=== PATIENT | male | born 1955 | race Caucasian/White ===

== ENCOUNTER 2019-08-31 06:02 | Observation (INO) ==
--- NOTE | 2019-08-01 14:35 | PAT Medication Instructions ---
Medication Instructions Date of Service August 01, 2019 Home Medications hydralazine 25 mg tablet 25 mg PO TID hydrocortisone 2.5 % topical cream 1 appln TOP TID PRN diltiazem HCl 180 mg capsule,extended release 24 hr 180 mg PO BID hydrochlorothiazide 25 mg PO QAM levothyroxine 50 mcg PO QAM lovastatin 10 mg PO Q2D olmesartan 40 mg PO QAM potassium chloride 10 meq PO BID Continue as directed lovastatin 10 mg PO Q2D STOP taking 24 hours before surgery hydrocortisone 2.5 % topical cream 1 appln TOP TID PRN DO NOT take the morning of surgery hydrochlorothiazide 25 mg PO QAM olmesartan 40 mg PO QAM potassium chloride 10 meq PO BID Take morning of surgery With a small sip of water, OTHERWISE NOTHING TO EAT OR DRINK AFTER MIDNIGHT: hydralazine 25 mg tablet 25 mg PO TID diltiazem HCl 180 mg capsule,extended release 24 hr 180 mg PO BID levothyroxine 50 mcg PO QAM Take evening before surgery hydralazine 25 mg tablet 25 mg PO TID diltiazem HCl 180 mg capsule,extended release 24 hr 180 mg PO BID potassium chloride 10 meq PO BID Other Notes If you have any questions please call us at [phone] or [phone] or [phone] or [phone]
--- NOTE | 2019-08-02 12:10 | Anesthesiology Consultation ---
Date of Service August 02, 2019 Assessment & Plan (1) Encounter for pre-operative examination: - Awaiting preop cardiology evaluation scheduled 08/02 (Nedra Olivarez, PAC). - ASA instructions: per surgeon/prescriber Chart Review Chart Review: Patient seen in Pre Admission Testing Teaching & Discussion Pre-Anesthesia Teaching/Discussion Notes: Instructed NPO after midnight before surgery,except medications with 15 cc of water. Medication instructions provided according to the PAT guidelines. History Surgery Operation Date: 08/31/19 07:30 Proposed Procedures p Robotic Assisted Laparoscopic Prostatectomy, Possible Open, Possible Pelvic Lymph Node Dissection, Possible Suprapubic Tube Placement - Eben Colón MD Height/Weight Height: 5 ft 9 in Weight: 109.3 kg Allergies Allergy/AdvReac Type Severity Reaction Status Date / Time Penicillins AdvReac Severe syncopal Verified 08/01/19 14:34 episode/"went into shock" doxazosin AdvReac Unknown Unknown Verified 07/26/19 08:08 enalapril AdvReac Unknown cough Verified 08/01/19 14:34 Medications Home Medications Medication Instructions Recorded Confirmed Last Taken hydralazine 25 mg tablet 25 mg PO TID 01/18/19 08/02/19 Unknown hydrocortisone 2.5 % topical cream 1 appln TOP TID PRN 01/18/19 08/02/19 Unknown diltiazem HCl 180 mg 180 mg PO BID #180 cap 06/13/19 08/02/19 Unknown capsule,extended release 24 hr hydrochlorothiazide 25 mg PO QAM 07/26/19 08/02/19 Unknown levothyroxine 50 mcg PO QAM 07/26/19 08/02/19 Unknown lovastatin 10 mg PO Q2D 07/26/19 08/02/19 Unknown olmesartan 40 mg PO QAM 07/26/19 08/02/19 Unknown potassium chloride 10 meq PO BID 07/26/19 08/02/19 Unknown aspirin [Aspirin Low Dose] 81 mg PO DAILY 08/02/19 08/02/19 Unknown Exercise / Class Metabolic Activity III < 4 Walking/Shop/Light housework Past Family History Family History Grandmother Pancreatic cancer Diabetes Hypertension Grandfather Prostate cancer Bladder cancer Heart disease Father Diabetes Heart disease Mother Hypertension Brother Family history of diabetes mellitus Uncle Family history of diabetes mellitus Past Anesthesia History No Hx of Anesthesia Complications (except PONV (no issues when pretreatment used)) and No Family Hx of Anesthesia Complications History of PONV History of PONV (no issues subsequently when pretreatment used) and Hx of Motion Sickness Social History Smoking Status: Never smoker Do You Dip or Chew Tobacco: No Hx Alcohol Use: No Hx Substance Use: No Review of Systems Patient denies chest pain, shortness of breath, cough, wheezing, palpitations. Physical Exam Vital Signs VITALS BP 144/90 P 60 TEMP 98.1 SP02 99%RA RESP 18 PHYSICAL Full neck and c-spine range of motion. Full TMJ range of motion. TMD 4 finger breaths Mallampati Score 2 Dentition: intact Lungs: clear throughout to auscultation Cardiac: regular rate and rhythm, no murmurs noted Spine: normal Carotid arteries: negative bruit Extremities: no edema Trimmed roberto Testing Laboratory Results 07/26/19 WBC 7.06 H/H 16.6/46.9 PLATELETS 222 SODIUM 141 POTASSIUM 3.5 CHLORIDE 109 CO2 27 BUN 14 CREATININE 1.11 GLUCOSE 126 HGBA1C 5.9% PT 9.6 PTT 27.8 INR 0.9 Electrocardiogram Date: 08/02/19 SB at 59bpm. Chest X-Ray Date: 08/02/19 There is no pneumothorax or pleural effusion. Surgical clips project over the right hemithorax. Prosthetic cardiac valve is noted. There is mild cardiomegaly without evidence for pulmonary edema. There is no consolidation. Lung volumes are within normal limits. No acute cardiopulmonary findings. Echocardiogram Date: 07/18/18 LVEF 67%. Mild cLVH. Mild enlargement of atria and RV. Morphology and mobility of anterior and posterior leaflets are consistent with prior MV surgery and presence of an annuloplasty ring. Very mild mitral stenosis with an estimated mean diastolic gradient of 4-5mmhg and no significant mitral regurgitation. Mild TR. PASP 36mmhg. Compared to 07/01/17, no significant change. Moderate LAE/JV.
[~2019-08-31 06:02] MED LIST: ACETAMINOPHEN 1,000 MG/100 ML VIAL IV SCH; HEPARIN SOD 5,000 UNIT/0.5 ML VIAL SQ SCH; LR 15ML/HR IV SCH; VANCOMYCIN HCL 1,000 MG in SODIUM CHLORIDE 0.9% 250 ML IV SCH; VANCOMYCIN HCL 1,000 MG/270 ML BAG IV SCH
[2019-08-31] MEDS ORDERED: PROPOFOL IV EMULSION 10 MG/ML 20 ML VIAL IV ONE (06:48)
[2019-08-31] MEDS ORDERED: ONDANSETRON INJ 2 MG/ML 2 ML VIAL ONE ×2 (06:48→11:58)
[2019-08-31] MEDS ORDERED: DEXAMETHASONE SOD INJ 4 MG/ML VIAL ONE (06:48)
[2019-08-31] MEDS ORDERED: LIDOCAINE HCL 2% 2 ML VIAL/AMP(20MG/ML) INFIL ONE (06:48)
[2019-08-31] MEDS ORDERED: SUCCINYLCHOLINE CHLORIDE 20 MG/ML 10 ML VIAL ONE (06:48)
[2019-08-31] MEDS ORDERED: MIDAZOLAM HCL 1 MG/ML 2ML VIAL ONE (06:48)
[2019-08-31] MEDS ORDERED: CISATRACURIUM BESYLATE IV SOLN 2 MG/ML 10 ML VIAL IV ONE ×2 (06:48→10:50)
[2019-08-31] MEDS ORDERED: fentaNYL citrate 100 MCG/2 ML VIAL ONE ×2 (06:49→10:48)
[2019-08-31] MEDS ORDERED: SODIUM CHLORIDE 0.9% INJ 10 ML VIAL ONE (06:50)
--- NOTE | 2019-08-31 06:59 | History & Physical Bridge Note ---
Date of Service August 31, 2019 History & Physical Bridge Note I have examined the patient, reviewed the History & Physical and in the interval since the performance of the History & Physical I have noted the following changes of clinical significance: no changes noted
[2019-08-31] MEDS ORDERED: BUPIVACAINE 0.5 % 5 MG/1 ML MPF 30ML VIAL ONE (07:03)
[2019-08-31] MEDS ORDERED: PROMETHAZINE HCL 12.5 MG in SODIUM CHLORIDE 0.9% 50 ML IV PRN (08:09)
[2019-08-31] MEDS ORDERED: NALOXONE HCL 0.4 MG/1 ML VIAL/CARP IV PRN (08:09)
[2019-08-31] MEDS ORDERED: HYDROmorphone INJ 1 MG/ML SYRINGE IV PRN ×3 (08:09→12:29)
[2019-08-31] MEDS ORDERED: fentaNYL citrate 100 MCG/2 ML VIAL IV PRN (08:09)
[2019-08-31] MEDS ORDERED: ONDANSETRON INJ 2 MG/ML 2 ML VIAL IV PRN ×2 (08:09→12:29)
[2019-08-31] MEDS ORDERED: ATROPINE SULFATE 0.1 MG/ML 10ML SYR IV PRN (08:09)
[2019-08-31] MEDS ORDERED: FLUMAZENIL 0.1 MG/1 ML 10 ML VIAL IV PRN (08:09)
[2019-08-31] MEDS ORDERED: ePHEDrine sulfate 50 MG/ML AMP IV PRN (08:09)
[2019-08-31] MEDS ORDERED: LABETALOL HCL IV 5 MG/ML 20ML IV PRN (08:09)
[2019-08-31] MEDS ORDERED: HYDROmorphone INJ 2 MG/ML SYR/VIAL ONE (08:21)
[2019-08-31] MEDS ORDERED: SURGICEL ABSORB HEMOSTAT 2IN X 14IN TOP ONE (10:52)
[2019-08-31] MEDS ORDERED: GLYCOPYRROLATE 0.2 MG/ML VIAL ONE (11:58)
[2019-08-31] MEDS ORDERED: NEOSTIGMINE METHYLSULFATE 5 MG/5 ML SYR ONE (11:58)
[2019-08-31] MEDS ORDERED: OXYCODONE HCL IR 5 MG TAB (IMMEDIATE RELEASE) PO PRN ×2 (12:34)
[2019-08-31] MEDS ORDERED: LABETALOL HCL IV 5 MG/ML 20ML IV ONE (12:38)
--- NOTE | 2019-08-31 12:40 | Operative Report ---
PG Post Operative Report Pre & Post Diagnosis Operation Date: 08/31/19 07:30 Pre-Op Diagnosis: Prostate Cancer Post-Op Diagnosis: Prostate Cancer I identified the patient and participated in the time-out.: Yes Procedure Operation Date: 08/31/19 07:30 Actual Procedures p Robotic-Assisted Laparoscopic Radical Retropubic Prostatectomy, Bilateral Pelvic Lymph Node Dissection, Suprapubic Tube Placement - Eben Colón MD Surgeon Eben Colón MD Cutter And Edge Trimmer Fifi FLORES Estimated Blood Loss 50 Findings Consistent with Post-Op Diagnosis Specimens Prostate + SVs, periprostatic fat, L and R pelvic lymph nodes Description of Procedure See above I attest to the content of the Intraoperative Record and any orders documented therein. Any exceptions are noted below.
[2019-08-31 13:32] LABS: Basophils # (auto) 0.01 K/uL (0-0.2); Basophils % (auto) 0.1 %; Eosinophils # (auto) 0.01 K/uL (0-0.5); Eosinophils % (auto) 0.1 %; Hematocrit (blood only) 42.9 % (42-52); Hemoglobin 15.3 g/dL (14.0-18.0); Immature Granulocytes # (auto) 0.04 K/uL (0.00-0.02); Immature Granulocytes % (auto) 0.3 %; Lymphocytes # (auto) 1.11 K/uL (1.2-3.4); Lymphocytes % (auto) 7.6 %; Mean Corpuscular Hemoglobin 31.7 pg (25-34); Mean Corpuscular Volume 88.8 fL (80-100); Mean Platelet Volume 9.7 fL (7.4-10.4); Monocytes # (auto) 0.26 K/uL (0.11-0.59); Monocytes % (auto) 1.8 %; Neutrophils # (auto) 13.23 K/uL (1.4-6.5); Neutrophils % (auto) 90.1 %; Platelet Count 208 K/uL (130-400); RDW Coefficient of Variation 13.1 % (11.5-14.5); RDW Standard Deviation 42.5 fL (36.4-46.3); Red Blood Count 4.83 M/uL (4.7-6.1); White Blood Count 14.66 K/uL (4.8-10.8)
[2019-08-31 13:38] LABS: Mean Corpuscular Hgb Conc 35.7 g/dL (32-36)
[2019-08-31 13:48] LABS: BUN Creatinine Ratio 13.4 (10-20); Calcium 8.3 mg/dl (8.5-10.1); Creatinine Clr Calc Pharmacy 69.7 ml/min; Est GFR (African American) 67.1; Est GFR (Non-African American) 57.9; Potassium 3.8 mmol/L (3.5-5.1)
--- NOTE | 2019-08-31 13:57 | Operative Report ---
DATE OF OPERATION: 08/31/2019 PREOPERATIVE DIAGNOSIS: [place] 3+3 adenocarcinoma of the prostate with a preoperative PSA of 14.4. POSTOPERATIVE DIAGNOSIS: [place] 3+3 adenocarcinoma of the prostate with a preoperative PSA of 14.4. PROCEDURE: Robot-assisted laparoscopic radical retropubic prostatectomy with bilateral pelvic lymph node dissection and suprapubic tube placement. SURGEON: Eben Colón MD. STRAND FORMING MACHINE OPERATOR: MARK Euceda and KELLEY Sparrow. Assistants were present throughout the case for suction, retraction, port placement, needle and instrument passage, division of suture, retraction, clip placement and provision, patient positioning and general patient safety. ANESTHESIA: General anesthesia with endotracheal intubation plus local at port sites. ESTIMATED BLOOD LOSS: 50 mL. INTRAVENOUS FLUIDS: Approximately 2 liters of crystalloid. DRAINS LEFT IN PLACE: Include a 16-[place] silicone suprapubic tube with 10 mL of sterile water in the balloon, 18-[place] silicone urethral Bonilla catheter with 10 mL of sterile water in the balloon, #10 TANA drain in the left lower quadrant. SPECIMENS SENT TO PATHOLOGY: Periprosthetic fat, left pelvic lymph nodes with clip, right pelvic lymph nodes, prostate plus seminal vesicles. FINDINGS: Watertight anastomosis with no evidence of any rectal or intra-abdominal injuries, excellent nerve-sparing dissection on both sides. COMPLICATIONS: None. BRIEF HISTORY: Mr. Jacobs is a pleasant 64-year-old male with history of low-grade [place] 3+3 adenocarcinoma of the prostate on active surveillance. Unfortunately, his PSA has been rising and outpatient genetic scoring suggests a higher than average risk of aggressive disease. After discussion of risks and benefits of various forms of intervention, he has decided upon a robotic prostatectomy to manage his disease. Lymph node dissection originally is not planned due to a nomogram based risk of lymph node involvement of 1%. Please see H and P for further details. Intravenous Tylenol was provided for perioperative analgesia and subcutaneous heparin and SCDs used for DVT coverage. Intravenous vancomycin was provided due to a questionable history of PENICILLIN ALLERGY for antibiotic coverage. Informed consent was reviewed with the patient preoperatively today. DESCRIPTION OF PROCEDURE: The patient was properly identified and brought into the operative suite after identification of appropriate consent on the chart. General anesthesia with endotracheal intubation was initiated and the patient was prepped and draped in standard fashion for this procedure. time study statistician-out procedure was followed. All port sites were anesthetized with local prior to incision. A transverse supraumbilical incision was made after instillation of local anesthesia and this was used to introduce a 12 mm long laparoscopic port with a visual obturator under direct visualization. Abdomen was entered and inspected. It was noted to be free of any injuries or abnormalities in anatomy. Abdomen was insufflated to 15 mmHg and ports were placed for fourth arm robotic template including two 8 mm left-sided robotic ports, one 8 mm right-sided robotic port, and a 5 and 12 mm right-sided laparoscopic port. The patient was placed in Trendelenburg and robot was brought in and docked. A 0 degree lens was used to free colonic attachments and then drop the bladder down to the level of the pubic bone. Prostate was defatted. This was sent for pathologic analysis. The endopelvic fascia was skeletonized and then sharply entered using hook cautery. This was used to carry the dissection up to the level of the apex of the prostate. Prominent neurovascular bundles were appreciated and a nerve-sparing dissection was initiated at this point in time. Dorsal vein was skeletonized and controlled using an 0 Vicryl suture on a CT1 needle. Attention was then turned to the bladder neck, which was placed on traction using the fourth arm. A significant amount of hyperostosis pubis was appreciated. Bladder neck was skeletonized down to the level of the Bonilla catheter, which was then grasped using the fourth arm and brought up through to the anterior bladder wall for traction on the prostate. Posterior bladder neck was divided and dropped in the midline. Vas deferens were encountered and circumscribed. Inferior vesicle pedicles and prostatic pedicles were taken using a cold Weck clips to assist with opening the bladder neck. After this was complete, the seminal vesicles were able to be dissected free in their entirety. Cold scissors were used to drop the rectum up to the level of the apex of the prostate. Pedicle dissection was then completed as well as nerve-sparing dissection up to the level of the apex of the prostate. Attention was then turned to the dorsal vein. Using a 0 degree lens, which was divided and the urethra was skeletonized. Some loosening of the dorsal venous suture was appreciated and so this was replaced again using an 0 Vicryl suture on a CT1 needle in a [id number]-[id number] fashion. Urethra was skeletonized with excellent urethral length and then divided leaving an adequate margin at the level of the prostate. Remaining rectourethralis fibers and final neurovascular bundle attachments were freed from the prostate and the prostate was brought up to the abdomen. This was placed within an EndoCatch bag for retrieval at the end of the case. The pelvis was inspected and filled with saline irrigation. Rectum was insufflated under saline irrigation and noted to be free of any evidence of rectal injuries. Attention was then turned to the pelvic lymph nodes bilaterally. These were felt to be somewhat bulky, and therefore, pelvic lymph node dissection was undertaken. Using the boundaries of the external iliac vein, pelvic sidewall and obturator nerve, bilateral pelvic lymph node dissections were performed. Weck clips and monopolar cautery were used on the prominent lymphatics and small vessels as necessary. No evidence of any injury to either obturator nerve was appreciated with excellent hemostasis throughout the case. After this was complete, the left-sided lymph node packet was marked using a Weck clip and these were placed within the second EndoCatch bag for retrieval at the end of the case. Attention was then turned to the pelvis with excellent hemostasis was appreciated. Using a double armed V-Loc suture, a circumferential running anastomosis was performed between the bladder neck and the urethra. A Bonilla catheter was visualized entering the urethra prior to completion of closure. 10 mL of sterile water were placed in the balloon and the bladder was filled with greater than 120 mL of sterile irrigant and noted to be watertight. A small suprapubic incision was then made and a suprapubic catheter introduction kit was passed into the abdominal cavity and then into the anterior bladder wall under direct visualization. A 16-[place] silicone catheter was placed via the trocar, which was then peeled away. 10 mL of sterile water were placed in the balloon and balloon was noted to be well inflated within the bladder. Urethral catheter was replaced with an 18-[place] silicone catheter with 10 mL of sterile water in the balloon. These were able to be irrigated and aspirated with isovolumic return from one catheter to the other. Catheters were placed to gravity drainage. The fourth arm was removed and a #10 TANA drain was brought in via the fourth arm port. This was placed within the confines of the pelvis but away from the anastomosis. After this was complete, the robotic instruments were removed and robot was dedocked. Camera was brought in via the 12 mm instruction assistant principal port and the strings to the EndoCatch bag were brought up through the supraumbilical incision. Trocars were removed and excess carbon dioxide gas was removed from the abdomen. Supraumbilical incision was enlarged laterally to allow for easy removal of the specimen bag. Fascia was closed at the level of the supraumbilical incision using an 0 Vicryl suture on a UR-5 needle. Subcutaneous tissue was also closed using an 0 Vicryl suture. 2-0 silk was used to secure the #[address] but the suprapubic tube was left without a tacking suture seeing the patient's pannus to avoid dislodging from the bladder. After this was performed, 4-0 Monocryl was used at the level of the skin incisions followed by Dermabond for closure. TANA drain was placed to bulb suction and catheters to gravity drainage. Anesthesia was reversed. The patient was transferred to the recovery room in stable condition. FOLLOWUP CARE: The patient will be admitted to the floor for standard postoperative management. I attest to the content of the Intraoperative Record and any orders documented therein. Any exception s are noted below.
--- NOTE | 2019-08-31 14:13 | Anesthesiology Progress Note ---
Date of Service August 31, 2019 Anesthesia Post Procedure Vital Signs Vital Signs: Temp Pulse Pulse Resp BP BP Pulse Ox 08/31/19 14:00 67 14 133/82 97 08/31/19 13:50 65 10 L 144/79 H 95 08/31/19 13:40 64 11 L 143/84 H 94 08/31/19 13:30 63 10 L 143/89 H 98 08/31/19 13:20 61 12 156/79 H 99 08/31/19 13:10 57 L 12 134/75 100 08/31/19 13:00 58 L 12 125/73 100 08/31/19 12:50 57 L 12 118/65 99 08/31/19 12:43 36.4 C L 58 L 14 139/69 99 08/31/19 06:53 36.3 C L 69 20 185/103 H 97 Pain Intensity Lower Abdomen: Pain Intensity: 5 Transfer of Care Handoff Completed per policy Notes Mental Status: alert / awake / arousable Patient Amnestic to Procedure: Yes Nausea / Vomiting: adequately controlled Pain: adequately controlled Airway Patency, RR, SpO2: stable & adequate BP & HR: stable & adequate Hydration State: stable & adequate Anesthetic Complications: no major complications apparent
[2019-08-31] MEDS: LACTATED RINGER'S 1,000 ML IV SCH ×2 (14:52→23:11)
[2019-08-31] MEDS: HydrALAZINE TAB 50 MG TAB PO SCH ×3 (16:04→21:08)
[2019-08-31] MEDS: ACETAMINOPHEN 1,000 MG/100 ML VIAL IV SCH ×2 (16:07→22:36)
[2019-08-31] MEDS ORDERED: LOVASTATIN 20 MG TAB PO SCH (21:00)
[2019-08-31] MEDS: HEPARIN SOD 5,000 UNIT/0.5 ML VIAL SQ SCH (21:05)
[2019-08-31] MEDS: dilTIAZem HCL 180 MG CAPCR PO SCH (21:09)
[2019-08-31] MEDS: POTASSIUM CHLORIDE 10 MEQ TABCR PO SCH (21:09)
[2019-08-31] MEDS: SULFAMETHOXAZOLE/TRIMETHOPRIM DS 800/160MG TAB PO SCH (21:11)
[2019-09-01 03:33] VITALS: O2SAT 97
[2019-09-01] MEDS: ACETAMINOPHEN 1,000 MG/100 ML VIAL IV SCH (06:13)
[2019-09-01 06:14] LABS: Basophils # (auto) 0.01 K/uL (0-0.2); Basophils % (auto) 0.1 %; Hematocrit (blood only) 40.5 % (42-52); Hemoglobin 14.2 g/dL (14.0-18.0); Immature Granulocytes # (auto) 0.04 K/uL (0.00-0.02); Immature Granulocytes % (auto) 0.3 %; Lymphocytes # (auto) 1.19 K/uL (1.2-3.4); Mean Corpuscular Hemoglobin 31.4 pg (25-34); Mean Corpuscular Hgb Conc 35.1 g/dL (32-36); Mean Corpuscular Volume 89.6 fL (80-100); Monocytes # (auto) 1.07 K/uL (0.11-0.59); Neutrophils % (auto) 80.6 %; Platelet Count 179 K/uL (130-400); RDW Coefficient of Variation 13.2 % (11.5-14.5); Red Blood Count 4.52 M/uL (4.7-6.1); White Blood Count 11.91 K/uL (4.8-10.8)
[2019-09-01] MEDS ORDERED: LEVOTHYROXINE SODIUM 50 MCG TABLET PO SCH (06:30)
[2019-09-01 06:44] LABS: BUN Creatinine Ratio 14.9 (10-20); Calcium 8.3 mg/dl (8.5-10.1); Creatinine Clr Calc Pharmacy 84.9 ml/min; Est GFR (African American) 85.3; Est GFR (Non-African American) 73.6; Potassium 3.6 mmol/L (3.5-5.1)
--- NOTE | 2019-09-01 07:46 | Urology Progress Note ---
Date of Service September 01, 2019 Assessment & Plan (1) Prostate cancer: A/P 64 yo male POD#1 s/p RALRP, BPLND, SPT placement. Doing well. Wishes to have urethral avila out - will order removal, SPT draining. Monitor TANA output after avila removal. Advance diet and activity, ambulate in halls, pain meds PRN prior to activity. Anticipate DC TANA and DC home in PM today. OK to hold IVF for ambulation, will DC in PM if taking good PO. Outpatient DC plans and appointments confirmed. Patient vocalizes good understanding of the treatment plan. Subjective 64 yo male POD#1 s/p RALRP, BPLND, SPT placement. He notes he has been OOBTC, pain at surgical site with movement, appropriate. He denies BM, corie clears without difficulties. Labs stable, in good spirits, resting comfortably, no other c/o. Review of Systems Constitutional: no fever and no chills Eyes: no diplopia Ear, Nose, Mouth, Throat: no ear trauma Respiratory: no hemoptysis Cardiovascular: no chest pain Gastrointestinal: + abdominal pain (postsurgical); no nausea and no vomiting Genitourinary: + hematuria (near resolved) Integumentary: no acne and no boil Neurologic: no paralysis Psychiatric: no hopelessness Allergy / Immunological: no tongue swelling Physical Exam Constitutional: + obese; no acute distress Eyes: eyes not dysmorphic ENMT: Ears: no external ear abnormality Neck: trachea midline; no anterior neck swelling Respiratory: no respiratory distress and does not use accessory muscles Cardiovascular: Vessels: radial pulses present Gastrointestinal (Abdomen): Inspection/Auscultation: abdomen not distended Percussion/Palpation: abdomen soft; abdomen nontender inc c/d/i with dermabond, minimal drainage at TANA and SPT site Musculoskeletal: Head/Neck/Chest: normocephalic and neck supple Skin: normal turgor Neurologic: awake; not obtunded Psychiatric: Orientation: oriented x 3 Lymphatic: no lymphadenopathy Results & Data Vital Signs (Past 12 Hours) Vital Signs Temp Pulse Resp BP Pulse Ox 09/01/19 03:15 36.8 C 68 18 124/75 97 08/31/19 23:00 37.3 C 83 18 135/71 94 08/31/19 21:07 81 117/69 96 Laboratory Results Laboratory Results - last 48 hr 08/31/19 08/31/19 08/31/19 13:20 13:20 14:48 WBC 14.66 H RBC 4.83 Hgb 15.3 Hct 42.9 MCV 88.8 MCH 31.7 MCHC 35.7 RDW Std Deviation 42.5 RDW Coeff of Sylvester 13.1 Plt Count 208 MPV 9.7 Immature Gran % (Auto) 0.3 Neut % (Auto) 90.1 Lymph % (Auto) 7.6 [place] % (Auto) 1.8 Eos % (Auto) 0.1 Baso % (Auto) 0.1 Immature Gran # (Auto) 0.04 H Neut # (Auto) 13.23 H Lymph # (Auto) 1.11 L [place] # (Auto) 0.26 Eos # (Auto) 0.01 Baso # (Auto) 0.01 Sodium 140 Potassium 3.8 Chloride 110 H Carbon Dioxide 27 Anion Gap 2.0 L BUN 17 Creatinine 1.28 Est Cr Clr Drug Dosing 69.7 Est GFR ( Amer) 67.1 Est GFR (Non-Af Amer) 57.9 BUN/Creatinine Ratio 13.4 Glucose 234 H POC Glucose 206 H Calcium 8.3 L 09/01/19 09/01/19 05:55 05:55 WBC 11.91 H RBC 4.52 L Hgb 14.2 Hct 40.5 L MCV 89.6 MCH 31.4 MCHC 35.1 RDW Std Deviation 43.0 RDW Coeff of Sylvester 13.2 Plt Count 179 MPV 10.0 Immature Gran % (Auto) 0.3 Neut % (Auto) 80.6 Lymph % (Auto) 10.0 [place] % (Auto) 9.0 Eos % (Auto) 0.0 Baso % (Auto) 0.1 Immature Gran # (Auto) 0.04 H Neut # (Auto) 9.60 H Lymph # (Auto) 1.19 L [place] # (Auto) 1.07 H Eos # (Auto) 0.00 Baso # (Auto) 0.01 Sodium 140 Potassium 3.6 Chloride 109 H Carbon Dioxide 27 Anion Gap 4.0 BUN 16 Creatinine 1.05 Est Cr Clr Drug Dosing 84.9 Est GFR ( Amer) 85.3 Est GFR (Non-Af Amer) 73.6 BUN/Creatinine Ratio 14.9 Glucose 120 H POC Glucose Calcium 8.3 L PG Care Time/CCT Total # of Minutes Spent Total Time Spent with Patient: Total time spent is greater than 50% in coordination of care (as documented) at patient's floor/unit and/or counseling patient:
[2019-09-01 08:12] VITALS: BP 155/82; PULSE 73; TEMP 97.7
--- NOTE | 2019-09-01 08:27 | Anesthesiology Progress Note ---
Date of Service September 01, 2019 Anesthesia Post Procedure Vital Signs Vital Signs: Temp Pulse Pulse Pulse Resp BP BP 09/01/19 07:45 36.5 C 73 16 155/82 H 09/01/19 03:15 36.8 C 68 18 124/75 08/31/19 23:00 37.3 C 83 18 135/71 08/31/19 21:07 81 117/69 08/31/19 19:14 36.7 C 76 18 126/72 08/31/19 17:38 36.5 C 73 18 145/91 H 08/31/19 16:41 36.9 C 76 16 144/80 H 08/31/19 15:38 36.4 C L 75 16 148/89 H 08/31/19 15:08 36.8 C 72 16 134/80 08/31/19 14:40 36.4 C L 70 16 132/80 08/31/19 14:30 70 12 133/77 08/31/19 14:20 71 14 142/81 H 08/31/19 14:00 67 14 133/82 08/31/19 13:50 65 10 L 144/79 H 08/31/19 13:40 64 11 L 143/84 H 08/31/19 13:30 63 10 L 143/89 H 08/31/19 13:20 61 12 156/79 H 08/31/19 13:10 57 L 12 134/75 08/31/19 13:00 58 L 12 125/73 08/31/19 12:50 57 L 12 118/65 08/31/19 12:43 36.4 C L 58 L 14 139/69 Pulse Ox 09/01/19 07:45 97 09/01/19 03:15 97 08/31/19 23:00 94 08/31/19 21:07 96 08/31/19 19:14 98 08/31/19 17:38 95 08/31/19 16:41 95 08/31/19 15:38 100 08/31/19 15:08 99 08/31/19 14:40 100 08/31/19 14:30 97 08/31/19 14:20 97 08/31/19 14:00 97 08/31/19 13:50 95 08/31/19 13:40 94 08/31/19 13:30 98 08/31/19 13:20 99 01/16/20 13:10 100 08/31/19 13:00 100 08/31/19 12:50 99 08/31/19 12:43 99 Pain Intensity Lower Abdomen: Pain Intensity: 1 Notes Mental Status: alert / awake / arousable and participated in evaluation Patient Amnestic to Procedure: Yes Nausea / Vomiting: adequately controlled Pain: adequately controlled Airway Patency, RR, SpO2: stable & adequate BP & HR: stable & adequate Hydration State: stable & adequate Anesthetic Complications: no major complications apparent and Pt Satisfied with anesthetic care
[2019-09-01] MEDS: HydrALAZINE TAB 50 MG TAB PO SCH ×2 (08:43→12:36)
[2019-09-01] MEDS: SULFAMETHOXAZOLE/TRIMETHOPRIM DS 800/160MG TAB PO SCH (08:44)
[2019-09-01] MEDS: dilTIAZem HCL 180 MG CAPCR PO SCH (08:44)
[2019-09-01] MEDS: POTASSIUM CHLORIDE 10 MEQ TABCR PO SCH (08:44)
[2019-09-01] MEDS: HEPARIN SOD 5,000 UNIT/0.5 ML VIAL SQ SCH (08:45)
[2019-09-01] MEDS ORDERED: hydroCHLOROthiazide 25 MG TAB PO SCH (09:00)
[2019-09-01] MEDS ORDERED: OLMESARTAN MEDOXOMIL 40 MG TAB PO SCH (09:00)
[2019-09-01] MEDS: LACTATED RINGER'S 1,000 ML IV SCH (09:44)
--- NOTE | 2019-09-06 08:23 | Discharge Summary ---
Date of Service September 06, 2019 Admission HPI Per Admitting Provider 64 yo male with prostate cancer for robotic prostatectomy. See H&P for further details. Admission Exam (Per Admitting) Constitutional + obese; no acute distress Eyes eyes not dysmorphic ENMT Ears: no external ear abnormality Neck trachea midline; no anterior neck swelling Respiratory no respiratory distress and does not use accessory muscles Cardiovascular Vessels: radial pulses present Gastrointestinal (Abdomen) Inspection/Auscultation: abdomen not distended Percussion/Palpation: abdomen soft; abdomen nontender Musculoskeletal Head/Neck/Chest: normocephalic and neck supple Skin normal turgor Neurologic awake; not obtunded Psychiatric Orientation: oriented x 3 Lymphatic no lymphadenopathy Discharge Data Procedures Performed Operation Date: 08/31/19 07:30 Actual Procedures p Robotic-Assisted Laparoscopic Radical Retropubic Prostatectomy, Bilateral Pelvic Lymph Node Dissection, - Eben Colón MD s Suprapubic Tube Placement - Eben Colón MD Hospital Course (1) Prostate cancer: A/P 64 yo male POD#1 s/p RALRP, BPLND, SPT placement. Doing well. Wishes to have urethral avila out - will order removal, SPT draining. Monitor TANA output after avila removal. Advance diet and activity, ambulate in halls, pain meds PRN prior to activity. Anticipate DC TANA and DC home in PM today. OK to hold IVF for ambulation, will DC in PM if taking good PO. Outpatient DC plans and appointments confirmed. Patient vocalizes good understanding of the treatment plan. Discharge Instructions See DC instruction list.
== END 2019-09-01 15:04 | disposition home or self-care (01) ==
LOC: ASU 06:02 → INTOOBSV 12:29 → 3N 12:29

== ENCOUNTER 2022-11-23 06:03 | Observation (INO) ==
--- NOTE | 2022-11-03 14:35 | PAT Medication Instructions ---
Medication Instructions Date of Service November 03, 2022 Home Medications Medication Instructions Recorded External suction penile pump #1 ea 04/29/20 hydrocortisone 2.5 % topical cream 1 applic topical TID PRN 07/26/20 Hemorrhoids #270 grams hydralazine 50 mg tablet 50 mg PO QID #120 tabs 01/28/21 sildenafil 100 mg tablet (Viagra) See Rx Instructions PO DAILY PRN 07/29/21 sexual activity #30 tabs levothyroxine 50 mcg tablet 50 mcg PO QAM #90 tabs 11/24/21 lovastatin 10 mg tablet 10 mg PO Q2D #45 tabs 02/23/22 hydrochlorothiazide 25 mg tablet 25 mg PO QAM #90 tabs 05/25/22 potassium chloride 10 mEq 10 meq PO BID #180 caps 05/25/22 capsule,extended release diltiazem HCl 180 mg 180 mg PO BID #180 caps 08/27/22 capsule,extended release 24 hr Medications aspirin 81 mg tablet,delayed release (Julián Low Dose Aspirin) 81 mg PO HS hydrocortisone 2.5 % topical cream 1 applic topical TID PRN Hemorrhoids hydralazine 50 mg tablet 50 mg PO QID sildenafil 100 mg tablet (Viagra) See Rx Instructions PO DAILY PRN sexual activity levothyroxine 50 mcg tablet 50 mcg PO QAM lovastatin 10 mg tablet 10 mg PO Q2D hydrochlorothiazide 25 mg tablet 25 mg PO QAM potassium chloride 10 mEq capsule,extended release 10 meq PO BID diltiazem HCl 180 mg capsule,extended release 24 hr 180 mg PO BID glucosamine sulf dipot chlr,msm,chond 550 mg-C 30 mg-guzman 1 mg capsule (Glucosamine Chondroitin) 2 cap PO QPM ibuprofen 200 mg tablet 400 mg PO HS mecobalamin (vitamin B12) 1,000 mcg disintegrating tablet,sublingual 1,000 mcg sublingual QPM rbermqaigury-uhcbeqjl-fptyzg tablet (Multivitamin 50 Plus tablet) 1 tab PO QAM telmisartan 80 mg tablet 80 mg PO QPM Continue as directed hydrocortisone 2.5 % topical cream 1 applic topical TID PRN Hemorrhoids ASK your surgeon for instructions ibuprofen 200 mg tablet 400 mg PO HS ASK your prescriber and surgeon aspirin 81 mg tablet,delayed release (Julián Low Dose Aspirin) 81 mg PO HS STOP taking 2 weeks before surgery glucosamine sulf dipot chlr,msm,chond 550 mg-C 30 mg-guzman 1 mg capsule (Glucosamine Chondroitin) 2 cap PO QPM DO NOT take the morning of surgery sildenafil 100 mg tablet (Viagra) See Rx Instructions PO DAILY PRN sexual activity vfogbfbijymn-ibmqbpxr-vhqsbs tablet (Multivitamin 50 Plus tablet) 1 tab PO QAM hydrochlorothiazide 25 mg tablet 25 mg PO QAM potassium chloride 10 mEq capsule,extended release 10 meq PO BID Take morning of surgery With a small sip of water, OTHERWISE NOTHING TO EAT OR DRINK AFTER MIDNIGHT: hydralazine 50 mg tablet 50 mg PO QID levothyroxine 50 mcg tablet 50 mcg PO QAM lovastatin 10 mg tablet 10 mg PO Q2D (if sheduled to take that day) diltiazem HCl 180 mg capsule,extended release 24 hr 180 mg PO BID Take evening before surgery hydralazine 50 mg tablet 50 mg PO QID mecobalamin (vitamin B12) 1,000 mcg disintegrating tablet,sublingual 1,000 mcg sublingual QPM telmisartan 80 mg tablet 80 mg PO QPM diltiazem HCl 180 mg capsule,extended release 24 hr 180 mg PO BID potassium chloride 10 mEq capsule,extended release 10 meq PO BID Other Notes If you have any questions please call us at [phone] or [phone] or [phone] or [phone]
--- NOTE | 2022-11-09 12:53 | Anesthesiology Consultation ---
Date of Service November 09, 2022 Assessment & Plan (1) Encounter for pre-operative examination: Plan - PONV. - cardiology 10/28/22 [facility]: "...h/o prior MV repair d/t flail MV leaflet with plication of P2 leaflet and implantation of 31 mm Wesley ring annuloplasty, 08/2008. transient postop afib without reoccurrence. labile HTN...preoperative risk stratification regarding upcoming cervical spine surgery...feeling well from ao cardiac standpoint...per Phillip criteria, patient was counseled that he would be placed at a low risk (less than 1%) for any adverse perioperative cardiovascular events associated with cervical spine surgery...recent echocardiogram dated 07/2022 stable. EKG showing normal sinus rhythm, 60 bpm...well compensated from a cardiac standpoint...no other cardiac testing or interventions would further lower that risk...patient...accepting of that risk and wishes to proceed with surgery. No cardiac contraindications to surgery..." Chart Review Chart Review: Acceptable Risk for Surgery and Patient seen in Pre Admission Testing Teaching & Discussion Pre-Anesthesia Teaching/Discussion Notes: Instructed NPO after midnight before surgery, except medications with 15 cc of water. Medication instructions provided according to the PAT guidelines. History Surgery Operation Date: 11/23/22 10:05 Proposed Procedures p C5-C6 Anterior Cervical Discectomy and Fusion, Possible C3-C5 Fusion, Possible C4 Corpectomy, Spinal Cord Monitoring - Andrade Fountain, Height/Weight Height: 5 ft 9.5 in Weight: 107.048 kg Allergies Allergy/AdvReac Type Severity Reaction Status Date / Time Penicillins Allergy Severe syncopal Verified 11/03/22 11:49 episode/"went into shock" doxazosin AdvReac Mild Cough Verified 11/03/22 11:49 enalapril AdvReac Mild cough Verified 11/03/22 11:49 Medications Home Medications Medication Instructions Recorded Confirmed Last Taken aspirin 81 mg tablet,delayed 81 mg PO HS 08/02/19 11/03/22 08/21/19 release (Juláin Low Dose Aspirin) External suction penile pump #1 ea 04/29/20 08/05/22 Unknown hydrocortisone 2.5 % topical cream 1 applic topical TID PRN 07/26/20 11/03/22 Unknown Hemorrhoids #270 grams hydralazine 50 mg tablet 50 mg PO QID #120 tabs 01/28/21 11/03/22 Unknown sildenafil 100 mg tablet (Viagra) See Rx Instructions PO DAILY PRN 07/29/21 11/03/22 Unknown sexual activity #30 tabs levothyroxine 50 mcg tablet 50 mcg PO QAM #90 tabs 11/24/21 11/03/22 Unknown lovastatin 10 mg tablet 10 mg PO Q2D #45 tabs 02/23/22 11/03/22 Unknown hydrochlorothiazide 25 mg tablet 25 mg PO QAM #90 tabs 05/25/22 11/03/22 Unknown potassium chloride 10 mEq 10 meq PO BID #180 caps 05/25/22 11/03/22 Unknown capsule,extended release diltiazem HCl 180 mg 180 mg PO BID #180 caps 08/27/22 11/03/22 Unknown capsule,extended release 24 hr glucosamine sulf dipot 2 cap PO QPM 11/03/22 11/03/22 Unknown chlr,msm,chond 550 mg-C 30 mg-guzman 1 mg capsule (Glucosamine Chondroitin) ibuprofen 200 mg tablet 400 mg PO HS 11/03/22 11/03/22 Unknown mecobalamin (vitamin B12) 1,000 1,000 mcg sublingual QPM 11/03/22 11/03/22 Unknown mcg disintegrating tablet,sublingual vmjfcuqlgioe-irpwopge-iqkxrx 1 tab PO QAM 11/03/22 11/03/22 Unknown tablet (Multivitamin 50 Plus tablet) telmisartan 80 mg tablet 80 mg PO QPM 11/03/22 11/03/22 Unknown Past Medical History Medical History (Updated 11/09/22 @ 13:04 by Pam Youssef PA-C) Arm numbness B/L Cervical spinal stenosis GERD (gastroesophageal reflux disease) "Silent reflux" History of asthma History of COVID-19 03/30/22 History of prostate cancer s/p prostatectomy (2019) Hx of basal cell carcinoma s/p Moh's procedure Hx of squamous cell carcinoma Hyperlipidemia Hypertension variable Hypothyroidism Leg weakness, bilateral Male stress incontinence Mitral valve disorder s/p mitral valve annuloplasty (2008) Echo 07/29/22 with Mild mitral stenosis, no significant MR Follows with [facility]/Dr. Bronson Neuropathy Ocular migraine Peripheral neuralgia Prediabetes Patient denies h/o stroke, seizures, heart attack, heart failure, blood clots or blood transfusions. Exercise / Class Metabolic Activity II 4-5 Yardwork/Stairs/Walk up hill (denies chest discomfort or shortness of breath with 1 FOS) Past Family History Family History Grandmother Pancreatic cancer Diabetes Hypertension Grandfather Prostate cancer Bladder cancer Heart disease Father Diabetes Heart disease Mother Hypertension Brother Family history of diabetes mellitus Uncle Family history of diabetes mellitus Other No family history of adverse response to anesthesia Past Surgical History Surgical History (Updated 11/09/22 @ 13:07 by Pam Youssef PA-C) H/O knee surgery Right knee surgery for torn meniscus H/O Mohs micrographic surgery for skin cancer multiple excisions H/O prostatectomy August 2019 H/O vasectomy History of anesthesia reaction Slow to wake; denies re-intubation History of cardiac cath 2008- no stents History of colonoscopy multiple History of placement of ear tubes Nausea and vomiting after administration of anesthetic agent denies needing scop patch S/P MVR (mitral valve repair) 2008 S/P tonsillectomy and adenoidectomy [place] teeth removed Past Anesthesia History No Family Hx of Anesthesia Complications and Other (slow to wake, denies re-intubation) History of PONV History of PONV (denies needing scop patch) and Hx of Motion Sickness Social History Smoking Status: Never smoker Do You Dip or Chew Tobacco: No Hx Alcohol Use: No substance use type: does not use Review of Systems Patient denies chest pain, shortness of breath, dyspnea on exertion, snoring, witnessed apneas, fever, chills, cough, wheezing, or palpitations. Physical Exam Vital Signs Vitals BP 152/92 P 62 TEMP 98.1 SP02 100% on RA RESP 17 Physical Full cervical extension range of motion without pain TMD 3.5 finger breadths Mallampati Score 3 Dentition: intact, denies chipped or loose teeth, caps/crowns, implants or bridges Lungs: normal respiratory effort. Clear throughout to auscultation, no adventitious breath sounds Cardiac: regular rate and rhythm, 1/6 systolic murmur Carotid arteries: negative bruit bilat Lab Results Anesthesia Preop Results Results Anesthesia Widget: WBC 6.49 K/ul (4.8-10.8) 11/09/22 Hgb 16.1 g/dl (14.0-18.0) 11/09/22 Hct 44.6 % (42.0-52.0) 11/09/22 Plt 213 K/uL (130-400) 11/09/22 Na 143 mmol/L (136-145) 11/09/22 K 3.5 mmol/L (3.5-5.1) 11/09/22 Cl 108 mmol/L (98-107) H 11/09/22 CO2 30 mmol/L (21-32) 11/09/22 BUN 18 mg/dl (6-23) 11/09/22 Creat 1.09 mg/dl (0.6-1.4) 11/09/22 Glucose Level 99 mg/dl (70-99(Fasting)) 11/09/22 PT 10.4 Seconds (9.0-12.0) 11/09/22 PTT 28.9 Seconds (21.0-31.0) 11/09/22 INR 1.0 (0.9-1.1) 11/09/22 Urine Color Yellow 11/09/22 Urine Appearance Clear (Clear) 11/09/22 Urine pH 7.0 (4.5-7.5) 11/09/22 Urine Specific [place] 1.013 (1.000-1.030) 11/09/22 Urine Protein Negative (Negative) 11/09/22 Urine Glucose (UA) Negative (Negative) 11/09/22 Urine Ketones Negative (Negative) 11/09/22 Urine Blood Negative (Negative) 11/09/22 Urine Nitrite Negative (Negative) 11/09/22 Urine Bilirubin Negative (Negative) 11/09/22 Urine Urobilinogen Negative (Negative) 11/09/22 Urine Leukocyte Esterase Negative (Negative) 11/09/22 Testing Electrocardiogram Date: 10/28/22 NSR, rate 60 bpm Chest X-Ray Date: 11/09/22 There is evidence of previous cardiac valve surgery. Epicardial pacing leads are in place. The heart is mildly enlarged. The pulmonary vasculature is nondistended congested. Chronic interstitial thickening similar to previous. Scarring/atelectasis is noted at the lung bases. The lungs and pleural spaces are otherwise clear. There is no pneumothorax. The skeletal structures are osteopenic. The bony thorax appears intact. Degenerative change is noted in the thoracic spine. IMPRESSION: Mild cardiomegaly with no active disease in the chest. Echocardiogram Date: 07/29/22 EF 55-59% Normal LV wall motion Mild cLVH Moderately enlarged LA Evidence of prior mitral valve repair Evidence of prior mitral valve annuloplasty Mild mitral stenosis Significant mitral regurgitation Mild tricuspid regurgitation No evidence of pulmonary hypertension Cervical Spine Date: 05/11/22 Multilevel degenerative changes including disc disease, facet arthropathy, and retrolisthesis, resulting in up to moderate to severe canal stenosis, AP diameter 6 mm, with severe bilateral neuroforaminal stenosis. Other Testing Carotid doppler 05/11/22 1. No hemodynamically significant stenosis or significant atherosclerotic plaquing. 2. Normal antegrade vertebral flow bilaterally. Brain MRI 04/09/22 No acute intracranial abnormality. Scattered foci of T2 hyperintensity seen within the periventricular and subcortical white matter are nonspecific but favor mild microvascular ischemic change. COVID-19 Risk Screen Screening Information COVID-19 Screen Date: 11/09/22 Exposure 21 Days Family/Household +COVID Last 21 Days: No Exposure 10 Days Any COVID Exposure Last 10 Days: No Symptoms Last 10 Days Experienced COVID Sx Last 10 Days: No + COVID 0-90 Days COVID + in Last 0-90 Days: No
[~2022-11-23 06:03] MED LIST changes: -ACETAMINOPHEN 1,000 MG/100 ML VIAL IV SCH; +ACETAMINOPHEN 500 MG TAB PO SCH; +CLINDAMYCIN/D5W 900 MG/50 ML BAG IV SCH; +CeleBREX 200 MG CAP PO SCH; +GABAPENTIN 300 MG CAP PO SCH; -HEPARIN SOD 5,000 UNIT/0.5 ML VIAL SQ SCH; -VANCOMYCIN HCL 1,000 MG in SODIUM CHLORIDE 0.9% 250 ML IV SCH; -VANCOMYCIN HCL 1,000 MG/270 ML BAG IV SCH
[2022-11-23] MEDS ORDERED: ceFAZolin 330 MG/ML 1 GM VIAL ONE (07:03)
[2022-11-23] MEDS ORDERED: PROMETHAZINE HCL 12.5 MG in SODIUM CHLORIDE 0.9% 50 ML IV PRN ×2 (07:12→11:17)
[2022-11-23] MEDS ORDERED: ATROPINE SULFATE 0.1 MG/ML 10ML SYR IV PRN (07:12)
[2022-11-23] MEDS ORDERED: LABETALOL HCL IV 5 MG/ML 20ML IV PRN (07:12)
[2022-11-23] MEDS ORDERED: HYDROmorphone INJ 1 MG/ML SYRINGE IV PRN ×2 (07:12→11:17)
[2022-11-23] MEDS ORDERED: ONDANSETRON INJ 2 MG/ML 2 ML VIAL IV PRN ×2 (07:12→11:17)
[2022-11-23] MEDS ORDERED: SCOPOLAMINE 1 MG TDSY TD ONE ×2 (07:14→07:16)
[2022-11-23] MEDS ORDERED: PROPOFOL IV EMULSION 10 MG/ML 20 ML VIAL IV ONE (07:25)
[2022-11-23] MEDS ORDERED: SUCCINYLCHOLINE CHLORIDE 20 MG/ML 10 ML VIAL IV ONE (07:25)
[2022-11-23] MEDS ORDERED: LIDOCAINE 2% MPF LOCAL 5 ML VIAL ONE (07:25)
[2022-11-23] MEDS ORDERED: fentaNYL citrate PF 100 MCG/2 ML VIAL ONE (07:26)
[2022-11-23] MEDS ORDERED: KETAMINE 50 MG/5 ML SYRINGE ONE (07:26)
--- NOTE | 2022-11-23 07:37 | History & Physical Bridge Note ---
Date of Service November 23, 2022 History & Physical Bridge Note I have examined the patient, reviewed the History & Physical and in the interval since the performance of the History & Physical I have noted the following changes of clinical significance: no changes noted
--- NOTE | 2022-11-23 07:38 | History & Physical Report ---
Date of Service November 23, 2022 Assessment & Plan (1) Myelopathy concurrent with and due to spinal stenosis of cervical region: Plan: C5-C6 anterior cervical discectomy and fusion, possible C3-C5 fusion, possible C4 corpectomy History of Present Illness Chief Complaint: Neck and arm pain Primary Care Provider: Esteban Elizabeth MD This is a 67-year-old male who presents with worsening neck and arm pain after failing course of nonoperative care is here for surgical intervention. Allergies Allergy/AdvReac Type Severity Reaction Status Date / Time Penicillins Allergy Severe syncopal Verified 11/23/22 06:36 episode/"went into shock" doxazosin AdvReac Mild Cough Verified 11/23/22 06:36 enalapril AdvReac Mild cough Verified 11/23/22 06:36 Home Medications Medication Instructions Recorded Confirmed Type aspirin 81 mg tablet,delayed 81 mg PO HS 08/02/19 11/23/22 History release (Julián Low Dose Aspirin) External suction penile pump #1 ea 04/29/20 11/12/22 Rx hydrocortisone 2.5 % topical cream 1 applic topical TID PRN 07/26/20 11/23/22 Rx Hemorrhoids #270 grams hydralazine 50 mg tablet 50 mg PO QID #120 tabs 01/28/21 11/23/22 Rx sildenafil 100 mg tablet (Viagra) See Rx Instructions PO DAILY PRN 07/29/21 11/23/22 Rx sexual activity #30 tabs lovastatin 10 mg tablet 10 mg PO Q2D #45 tabs 02/23/22 11/23/22 Rx hydrochlorothiazide 25 mg tablet 25 mg PO QAM #90 tabs 05/25/22 11/23/22 Rx potassium chloride 10 mEq 10 meq PO BID #180 caps 05/25/22 11/23/22 Rx capsule,extended release diltiazem HCl 180 mg 180 mg PO BID #180 caps 08/27/22 11/23/22 Rx capsule,extended release 24 hr glucosamine sulf dipot 2 cap PO QPM 11/03/22 11/23/22 History chlr,msm,chond 550 mg-C 30 mg-guzman 1 mg capsule (Glucosamine Chondroitin) ibuprofen 200 mg tablet 400 mg PO HS 11/03/22 11/23/22 History mecobalamin (vitamin B12) 1,000 1,000 mcg sublingual QPM 11/03/22 11/23/22 History mcg disintegrating tablet,sublingual jyzyzohfkfwl-ecbpujiw-pqhqis 1 tab PO QAM 11/03/22 11/23/22 History tablet (Multivitamin 50 Plus tablet) telmisartan 80 mg tablet 80 mg PO QPM 11/03/22 11/23/22 History levothyroxine 50 mcg tablet 50 mcg PO QAM #90 tabs 11/16/22 11/23/22 Rx Past Med/Surg History Medical History Arm numbness Cervical spinal stenosis GERD (gastroesophageal reflux disease) History of asthma History of COVID-19 History of prostate cancer Hx of basal cell carcinoma Hx of squamous cell carcinoma Hyperlipidemia Hypertension Hypothyroidism Leg weakness, bilateral Male stress incontinence Mitral valve disorder Neuropathy Ocular migraine Peripheral neuralgia Prediabetes Surgical History H/O knee surgery H/O Mohs micrographic surgery for skin cancer H/O prostatectomy H/O vasectomy History of anesthesia reaction History of cardiac cath History of colonoscopy History of placement of ear tubes Nausea and vomiting after administration of anesthetic agent S/P MVR (mitral valve repair) S/P tonsillectomy and adenoidectomy [place] teeth removed Family History Grandmother Pancreatic cancer Diabetes Hypertension Grandfather Prostate cancer Bladder cancer Heart disease Father Diabetes Heart disease Mother Hypertension Brother Family history of diabetes mellitus Uncle Family history of diabetes mellitus Other No family history of adverse response to anesthesia Social History Smoking Status: Never smoker Second Hand Exposure: Yes ( A CHILD); Do You Dip or Chew Tobacco: No; Hx Alcohol Use: No Preferred Language: Upper Sorbian Communication Ability: Effective Visual Impairment: No Limitations Hearing Ability: Normal Border Guard Required: No Beliefs That Will Affect Care: None marital status: Current Living Situation: Spouse current occupational status: retired 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
[2022-11-23] MEDS ORDERED: DEXAMETHASONE SOD INJ 4 MG/ML VIAL ONE (08:19)
[2022-11-23] MEDS ORDERED: ONDANSETRON INJ 2 MG/ML 2 ML VIAL ONE (08:19)
[2022-11-23] MEDS ORDERED: FLOSEAL HEMOSTATIC MATRIX 10ML TOP ONE (08:31)
--- NOTE | 2022-11-23 09:41 | Operative Report ---
Post Operative Report Pre & Post Diagnosis Operation Date: 11/23/22 07:45 Pre-Op Diagnosis: Cervical spinal stenosis with myeloradiculopathy Post-Op Diagnosis: Same I identified the patient and participated in the time-out.: Yes Procedure Operation Date: 11/23/22 07:45 Actual Procedures p C5-C6 Anterior Cervical Discectomy and Fusion, C3-C5 Fusion, C4 Corpectomy, Spinal Cord Monitoring - Andrade Fountain DO Surgeon Andrade Fountain DO Mix House Tender Lenore Lincoln Estimated Blood Loss 10 Findings Consistent with Post-Op Diagnosis Specimens None Indications This is a 67-year-old male who presents above-mentioned diagnosis after failed course of nonoperative care is here for surgical invention. Description of Procedure Patient was met with identified informed consent obtained. Patient was then taken to the operative suite underwent a patient placed in a supine position the Allan table with head King head order. All bony prominences well-padded eyes inspected to ensure no external pressure placed upon them. This point the anterior cervical spine was prepped and draped in a sterile fashion. With the assistance of fluoroscopy identified the C4-C5 disc space and a transverse incision was placed along the right anterior aspect of the cervical spine overlying this region. Blunt dissection with assistance of bipolar electrocautery was performed down to and exposing the anterior cervical spine from C3-C6. Self-retaining retractors placed. Then performed a complete discectomy of C3-C4 out to the uncovertebral joints bilaterally followed by C4- C5. Brantley distractor pins were then placed in C3 and C5 to distract across the C4 vertebral body. Complete corpectomy was then performed including removal of all posterior annular fibers and longitudinal ligament bilateral foraminotomies performed. Endplates burred to subcortical bleeding bone and a 23 mm peek cage filled locally harvested morselized autograft and I factor tapped patient. I then proceeded to c 5 C6. Again complete discectomy performed out to the uncovertebral joints bilaterally. Brantley distracting pins again utilized. Removed all posterior annular fibers longitudinal ligament bilateral foraminotomies performed an 8 mm peek cage filled with I factor and locally harvested morselized autograft tapped in position. Distracting apparatus was removed all anterior osteophytes burred to a smooth cortical surface and a K2 M plate and screws applied with the assistance of fluoroscopy. The incision was then copiously irrigated explored to ensure no damage to nerves or to surrounding structures or remaining bleeding. 15 round TANA drain inserted. The incision was then closed with 2 Vicryl in a fashion of 4 Monocryl for final skin closure. Steri-Strips and a sterile dressing placed. Patient waken and taken to PACU in stable condition. Please note spinal cord monitoring was utilized at the procedure and no changes noted. Lastly Lenore Lincoln was present at the entire surgery and while the patient positioning complex portions of the surgery and final skin closure. I attest to the content of the Intraoperative Record and any orders documented therein. Any exceptions are noted below.
--- NOTE | 2022-11-23 10:16 | Fluoroscopy Report ---
INTRAOPERATIVE RADIOGRAPHS CLINICAL HISTORY: Cervical spinal fusion surgery. Fluoro time: 15 seconds Ka,r: 1.88 mGy FINDINGS: 2 spot fluoroscopic views of the cervical spine are presented. There has been corpectomy of C4 with anterior fusion seen at C3-C6. There has been multilevel discectomy. The orthopedic hardware appears intact. An endotracheal tube is in place. IMPRESSION: Intraoperative images from cervical spine fusion surgery as above. Electronically signed by: Esteban Cai M.D. 11/23/2022 10:14 AM
[2022-11-23] MEDS ORDERED: ONDANSETRON 4 MG OD TAB PO PRN (11:17)
[2022-11-23] MEDS ORDERED: oxyCODONE HCL IR 5 MG TAB (IMMEDIATE RELEASE) PO PRN (11:17)
[2022-11-23] MEDS ORDERED: DO NOT ADMINISTER FLU VACCINE PRN (11:17)
[2022-11-23] MEDS ORDERED: NALOXONE HCL 0.4 MG/1 ML VIAL/CARP IV PRN (11:17)
[2022-11-23] MEDS ORDERED: SOD PHOSPHATE/SOD BIPHOSPHATE ENEMA 132 ML BTL PR PRN (11:17)
[2022-11-23] MEDS ORDERED: LORazepam 0.5 MG TAB PO PRN (11:17)
[2022-11-23] MEDS ORDERED: METOCLOPRAMIDE HCL INJ 5 MG/ML 2 ML VIAL IV PRN (11:17)
[2022-11-23] MEDS ORDERED: ALUMINUM/MAGNESIUM SUSP 30 ML UDC PO PRN (11:17)
[2022-11-23] MEDS ORDERED: dexAMETHasone 8 MG in SYRINGE 0 ML IV PRN (11:17)
[2022-11-23] MEDS ORDERED: RACEPINEPHRINE 2.25% NEBU SOLN 0.5 ML VIAL INH PRN (11:17)
[2022-11-23] MEDS ORDERED: LORazepam 2 MG/1 ML VIAL IV PRN (11:17)
[2022-11-23] MEDS ORDERED: FAMOTIDINE 20 MG TAB PO PRN (11:17)
[2022-11-23] MEDS ORDERED: ACETAMINOPHEN 500 MG TAB PO PRN (11:17)
[2022-11-23] MEDS ORDERED: bisacodyL 10 MG SUPP PR PRN (11:17)
[2022-11-23] MEDS ORDERED: hydrOXYzine HCl 25 MG TAB PO PRN (11:17)
[2022-11-23] MEDS ORDERED: diphenhydrAMINE Capsule 25 MG CAP PO PRN (11:17)
[2022-11-23] MEDS ORDERED: HYDROmorphone INJ 0.5 MG/0.5 ML SYR IV PRN (11:17)
[2022-11-23] MEDS ORDERED: DO NOT ADMINISTER PNEUMOCOCCAL VACCINE PRN (11:17)
[2022-11-23] MEDS ORDERED: MAGNESIUM HYDROXIDE SUSP 30 ML UDC PO PRN (11:17)
[2022-11-23] MEDS ORDERED: ACETAMINOPHEN 1,000 MG/100 ML VIAL IV PRN (11:17)
[2022-11-23] MEDS ORDERED: traMADol HCL 50 MG TABLET PO PRN (11:17)
[2022-11-23] MEDS: LACTATED RINGER'S 1,000 ML IV SCH ×3 (11:32→23:11)
--- NOTE | 2022-11-23 12:11 | Anesthesiology Progress Note ---
Date of Service November 23, 2022 Anesthesia Post Procedure Vital Signs Vital Signs: Temp Pulse Pulse Resp BP Pulse Ox O2 Del Method 11/23/22 11:44 36.3 C L 60 16 162/94 H 100 Nasal Cannula 11/23/22 11:38 60 16 100 Nasal Cannula 11/23/22 11:28 Nasal Cannula 11/23/22 11:15 36.2 C L 60 16 169/92 H 99 Nasal Cannula 11/23/22 11:00 57 L 14 164/85 H 99 Nasal Cannula 11/23/22 10:50 36.2 C L 60 12 161/85 H 99 Nasal Cannula 11/23/22 10:40 55 L 12 157/84 H 98 Nasal Cannula 11/23/22 10:30 56 L 12 159/86 H 97 Nasal Cannula 11/23/22 10:20 56 L 14 148/84 H 97 Nasal Cannula 11/23/22 10:10 58 L 14 151/84 H 100 Nasal Cannula 11/23/22 10:00 59 L 15 144/80 H 100 Oxymask 11/23/22 09:52 36.2 C L 63 14 151/80 H 100 Oxymask 11/23/22 06:43 36.5 C 61 20 167/102 H 100 Room Air O2 Flow Rate 11/23/22 11:44 2 11/23/22 11:38 2 11/23/22 11:28 2 11/23/22 11:15 2 11/23/22 11:00 3 11/23/22 10:50 3 11/23/22 10:40 3 11/23/22 10:30 3 11/23/22 10:20 3 11/23/22 10:10 3 11/23/22 10:00 6 11/23/22 09:52 9 11/23/22 06:43 Transfer of Care Handoff Completed per policy Notes Mental Status: alert / awake / arousable Patient Amnestic to Procedure: Yes Nausea / Vomiting: adequately controlled Pain: adequately controlled Airway Patency, RR, SpO2: stable & adequate BP & HR: stable & adequate Hydration State: stable & adequate Anesthetic Complications: no major complications apparent
[2022-11-23] MEDS: hydrALAZINE TAB 50 MG TAB PO SCH ×3 (12:55→20:50)
[2022-11-23] MEDS: dexAMETHasone 6 MG in SYRINGE 0 ML IV SCH ×2 (12:55→22:15)
[2022-11-23] MEDS: CLINDAMYCIN/D5W 600 MG/50 ML BAG IV SCH (14:16)
[2022-11-23] MEDS: CHECK SCOPOLAMINE PATCH PLACEMENT SCH (14:19)
--- NOTE | 2022-11-23 14:28 | Hospitalist Consultation ---
Date of Consultation November 23, 2022 Assessment & Plan (1) Myelopathy concurrent with and due to spinal stenosis of cervical region: - S/P C5-C6 anterior cervical discectomy and fusion, C3-C5 fusion, C4 Corpectomy, and spinal cord monitoring 11/23/[address] Fountain (2) Type 2 diabetes mellitus: - on no medications, controlled with diet and exercise - Last HgbA1C 6 (3) Hypothyroidism: - Continue Levothyroxine 50mcg (4) Essential familial hypercholesterolemia: Continue Lovastatin 10mg one q2d (5) Benign essential hypertension: Continue HCTZ 25mg daily, Hydralazine 50mg QID, Diltiazem 180mg BID, Cozaar (ho spital equivalent to Telmisartan) 100mg Will continue to monitor BMP Plan Currently ordered clear liquid diet Pain management per primary team encouraged incentive spirometry We will continue to follow along with you and will order AM labs History of Present Illness Reason for Consultation: Medical management Requesting Physician: Dr Fountain Attending Physician: Andrade Fountain, DO History of Present Illness Garrett Jacobs is a 67 year old with a past medical history of benign essential HTN, familial hypercholesterolemia, hypothyroidism, B12 deficiency, Type II Diabetes, OA, Cervical stenosis, hx of prostate cancer and erectile dysfunction who was admitted with myelopathy concurrent with and due to spinal stenosis of cervical region. Patient had C5-C6 anterior cervical discectomy and fusion, C3-C5 fusion, C4 Corpectomy, and spinal cord monitoring today with Dr Fountain. A consult was placed with hospitalist service for medical management. Patient is post op day#0 he is awake and states he is feeling rather well. He deneis any chest pain, SOB, Dyspnea. He only complains of some mild hoarseness to his voice. Allergies Allergy/AdvReac Type Severity Reaction Status Date / Time Penicillins Allergy Severe syncopal Verified 11/23/22 06:36 episode/"went into shock" doxazosin AdvReac Mild Cough Verified 11/23/22 06:36 enalapril AdvReac Mild cough Verified 11/23/22 06:36 Home Medications Medication Instructions Recorded Confirmed Type aspirin 81 mg tablet,delayed 81 mg PO HS 08/02/19 11/23/22 History release (Julián Low Dose Aspirin) External suction penile pump #1 ea 04/29/20 11/12/22 Rx hydrocortisone 2.5 % topical cream 1 applic topical TID PRN 07/26/20 11/23/22 Rx Hemorrhoids #270 grams hydralazine 50 mg tablet 50 mg PO QID #120 tabs 01/28/21 11/23/22 Rx sildenafil 100 mg tablet (Viagra) See Rx Instructions PO DAILY PRN 07/29/21 11/23/22 Rx sexual activity #30 tabs lovastatin 10 mg tablet 10 mg PO Q2D #45 tabs 02/23/22 11/23/22 Rx hydrochlorothiazide 25 mg tablet 25 mg PO QAM #90 tabs 05/25/22 11/23/22 Rx potassium chloride 10 mEq 10 meq PO BID #180 caps 05/25/22 11/23/22 Rx capsule,extended release diltiazem HCl 180 mg 180 mg PO BID #180 caps 08/27/22 11/23/22 Rx capsule,extended release 24 hr glucosamine sulf dipot 2 cap PO QPM 11/03/22 11/23/22 History chlr,msm,chond 550 mg-C 30 mg-guzman 1 mg capsule (Glucosamine Chondroitin) ibuprofen 200 mg tablet 400 mg PO HS 11/03/22 11/23/22 History mecobalamin (vitamin B12) 1,000 1,000 mcg sublingual QPM 11/03/22 11/23/22 History mcg disintegrating tablet,sublingual reuhwrvahvzn-qudfiamv-mzhefa 1 tab PO QAM 11/03/22 11/23/22 History tablet (Multivitamin 50 Plus tablet) telmisartan 80 mg tablet 80 mg PO QPM 11/03/22 11/23/22 History levothyroxine 50 mcg tablet 50 mcg PO QAM #90 tabs 11/16/22 11/23/22 Rx oxycodone 5 mg tablet 5 mg PO DAILY PRN pain #30 tabs 11/23/22 Rx tramadol 50 mg tablet 50 mg PO Q6H PRN pain, moderate 11/23/22 Rx #30 tabs Patient History Medical History Arm numbness B/L Cervical spinal stenosis GERD (gastroesophageal reflux disease) "Silent reflux" History of asthma History of COVID-19 03/30/22 History of prostate cancer s/p prostatectomy (2019) Hx of basal cell carcinoma s/p Moh's procedure Hx of squamous cell carcinoma Hyperlipidemia Hypertension variable Hypothyroidism Leg weakness, bilateral Male stress incontinence Mitral valve disorder s/p mitral valve annuloplasty (2008) Echo 07/29/22 with Mild mitral stenosis, no significant MR Follows with [facility]/Dr. Bronson Neuropathy Ocular migraine Peripheral neuralgia Prediabetes Surgical History H/O knee surgery Right knee surgery for torn meniscus H/O Mohs micrographic surgery for skin cancer multiple excisions H/O prostatectomy August 2019 H/O vasectomy History of anesthesia reaction Slow to wake; denies re-intubation History of cardiac cath 2008- no stents History of colonoscopy multiple History of placement of ear tubes Nausea and vomiting after administration of anesthetic agent denies needing scop patch S/P MVR (mitral valve repair) 2008 S/P tonsillectomy and adenoidectomy [place] teeth removed Family History Grandmother Pancreatic cancer Diabetes Hypertension Grandfather Prostate cancer Bladder cancer Heart disease Father Diabetes Heart disease Mother Hypertension Brother Family history of diabetes mellitus Uncle Family history of diabetes mellitus Other No family history of adverse response to anesthesia Social History Smoking Status: Never smoker Second Hand Exposure: Yes ( A CHILD); Do You Dip or Chew Tobacco: No; Hx Alcohol Use: No Preferred Language: Russian Communication Ability: Effective Visual Impairment: No Limitations Hearing Ability: Normal Cardiovascular Technologist Required: No Beliefs That Will Affect Care: None marital status: Current Living Situation: Spouse current occupational status: retired 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 He admits to some hoarse voice but denies any dysphagia. He denies any abdominal pain, nausea or vomiting. All other ROS negative unless stated + above Physical Exam Constitutional: WD/WN, vitals as above Neck: cervical collar in place Respiratory: normal respiratory effort, lungs clear to auscultation Cardiovascular: RRR, no murmur, no edema Gastrointestinal (Abdomen): normal bowel sounds, soft, nontender, no hepatosplenomegaly Musculoskeletal: Cervical collar in place, drain tube Psychiatric: A+Ox3, euthymic affect Results & Data Results & Data Vital Signs (Past 12 Hours) Vital Signs Temp Pulse Pulse Resp BP Pulse Ox O2 Del Method 11/23/22 14:14 36.5 C 69 16 147/83 H 99 Nasal Cannula 11/23/22 13:15 36.4 C L 71 16 164/98 H 99 Nasal Cannula 11/23/22 12:15 36.3 C L 64 16 164/92 H 99 Nasal Cannula 11/23/22 11:44 36.3 C L 60 16 162/94 H 100 Nasal Cannula 11/23/22 11:38 60 16 100 Nasal Cannula 11/23/22 11:28 Nasal Cannula 11/23/22 11:15 36.2 C L 60 16 169/92 H 99 Nasal Cannula 11/23/22 11:00 57 L 14 164/85 H 99 Nasal Cannula 11/23/22 10:50 36.2 C L 60 12 161/85 H 99 Nasal Cannula 11/23/22 10:40 55 L 12 157/84 H 98 Nasal Cannula 11/23/22 10:30 56 L 12 159/86 H 97 Nasal Cannula 11/23/22 10:20 56 L 14 148/84 H 97 Nasal Cannula 11/23/22 10:10 58 L 14 151/84 H 100 Nasal Cannula 11/23/22 10:00 59 L 15 144/80 H 100 Oxymask 11/23/22 09:52 36.2 C L 63 14 151/80 H 100 Oxymask 11/23/22 06:43 36.5 C 61 20 167/102 H 100 Room Air O2 Flow Rate 11/23/22 14:14 2 11/23/22 13:15 2 11/23/22 12:15 2 11/23/22 11:44 2 11/23/22 11:38 2 11/23/22 11:28 2 11/23/22 11:15 2 11/23/22 11:00 3 11/23/22 10:50 3 11/23/22 10:40 3 11/23/22 10:30 3 11/23/22 10:20 3 11/23/22 10:10 3 11/23/22 10:00 6 11/23/22 09:52 9 11/23/22 06:43 Laboratory Results Abnormal lab results 11/23/22 Range/Units 06:35 POC Glucose 155 H (70-99) mg/dl Diagnostic Findings Cervical Spine X-Ray 11/23/22 07:45 INTRAOPERATIVE RADIOGRAPHS CLINICAL HISTORY: Cervical spinal fusion surgery. Fluoro time: 15 seconds Ka,r: 1.88 mGy FINDINGS: 2 spot fluoroscopic views of the cervical spine are presented. There has been corpectomy of C4 with anterior fusion seen at C3-C6. There has been multilevel discectomy. The orthopedic hardware appears intact. An endotracheal tube is in place. IMPRESSION: Intraoperative images from cervical spine fusion surgery as above. Electronically signed by: Esteban Cai M.D. 11/23/2022 10:14 AM PG Care Time/CCT Total # of Minutes Spent Total Time Spent with Patient: Total time spent is greater than 50% in coordination of care (as documented) at patient's floor/unit and/or counseling patient: Coding Level of Care Code 86323 IN/OBS CONSULT LVL 2,35M Diagnoses Myelopathy concurrent with and due to spinal stenosis of cervical region M48.02; G99.2 Type 2 diabetes mellitus E11.9 Hypothyroidism E03.9 Essential familial hypercholesterolemia E78.01 Benign essential hypertension I10
[2022-11-23] MEDS: dilTIAZem HCL 180 MG CAPCR PO SCH (20:49)
[2022-11-23] MEDS: POTASSIUM CHLORIDE 10 MEQ TABCR PO SCH (20:51)
[2022-11-23] MEDS ORDERED: CYANOCOBALAMIN (B-12) 500 MCG TABLET PO SCH (21:00)
[2022-11-23] MEDS ORDERED: DOCUSATE SODIUM/SENNA 50/8.6MG TAB PO SCH (21:00)
[2022-11-23] MEDS ORDERED: LOSARTAN POTASSIUM 50 MG TAB PO SCH (21:00)
[2022-11-24] MEDS: CLINDAMYCIN/D5W 600 MG/50 ML BAG IV SCH (00:08)
[2022-11-24] MEDS: CHECK SCOPOLAMINE PATCH PLACEMENT SCH (00:22)
[2022-11-24] MEDS: dexAMETHasone 6 MG in SYRINGE 0 ML IV SCH (05:21)
[2022-11-24] MEDS ORDERED: POLYETHYLENE (MIRALAX) 17 GM PACK PO SCH (06:00)
[2022-11-24 06:39] LABS: Hematocrit (blood only) 42.9 % (42.0-52.0); Hemoglobin 15.4 g/dl (14.0-18.0); Mean Corpuscular Hemoglobin 31.8 pg (25.0-34.0); Mean Corpuscular Hgb Conc 35.9 g/dL (32.0-36.0); Mean Corpuscular Volume 88.5 fL (80.0-100.0); Mean Platelet Volume 10.6 fL (9.4-12.4); Platelet Count 220 K/uL (130-400); RDW Standard Deviation 42.3 fL (36.4-46.3); Red Blood Count 4.85 M/uL (4.70-6.10); White Blood Count 11.23 K/ul (4.8-10.8)
[2022-11-24 07:15] LABS: BUN Creatinine Ratio 14.9 (10-20); Calcium 8.7 mg/dl (8.6-10.3); Est GFR (African American) 95.5 ml/min; Est GFR (Non-African American) 82.4 ml/min; Potassium 3.7 mmol/L (3.5-5.1)
--- NOTE | 2022-11-24 08:22 | Discharge Summary ---
Date of Service November 24, 2022 Admission HPI Per Admitting Provider This is a 67-year-old male who presents with worsening neck and arm pain after failing course of nonoperative care is here for surgical intervention. Principal Diagnosis Cervical stenosis with myeloradiculopathy Discharge Data Allergies Allergy/AdvReac Type Severity Reaction Status Date / Time Penicillins Allergy Severe syncopal Verified 11/23/22 06:36 episode/"went into shock" doxazosin AdvReac Mild Cough Verified 11/23/22 06:36 enalapril AdvReac Mild cough Verified 11/23/22 06:36 Consultations 11/23/22 11:46 Consult Medical [Consult Internal Medicine] Routine Procedures Performed Operation Date: 11/23/22 07:45 Actual Procedures p C5-C6 Anterior Cervical Discectomy and Fusion, C3-C5 Fusion, C4 Corpectomy, Spinal Cord Monitoring - Andrade Fountain DO Ordered Studies 11/23/22 07:45 FL cervical 2-3V Routine Hospital Course (1) Myelopathy concurrent with and due to spinal stenosis of cervical region: Patient went anterior cervical decompression fusion tolerated this well was t aken to the orthopedic floor postoperative. Postop day 1 and swallowing well. No hoarseness. Arm symptoms improving. TANA drain decreasing appropriately. Subsequently discharged home. Discharge orders and instructions found in the chart for further review. Total Time Total Time Spent Total Time Spent (In Minutes): 20 minutes Discharge Plan Discharge Items Patient Disposition: Home - Self-Care Reason For Visit: Spinal Stenosis, Cervical Region Discharge Diagnosis: Cervical spinal stenosis with myeloradiculopathy Activity: As commented below Non-emergency contact: Primary Care Provider Call non-emergency contact if: you have any medication questions Follow-up/Referrals: Esteban Elizabeth MD [Primary Care Provider] - Diet: Regular Addtl Attending Provider Instructions: ACTIVITY RECOMMENDATIONS: SELF CARE INSTRUCTIONS AFTER CERVICAL FUSIONS 1. No smoking. Smoking drastically decreases the chance of a solid fusion. 2. No bending, lifting more than 5 pounds, or twisting (roll like a log when turning in bed). 3. You may shower 3 days after surgery. Thoroughly dry wound. Do not soak in the tub. 4. Cervical collar: Must be worn at all times including sleeping. You may remove the brace only to bath, eat and if you are sitting in a recliner. 5. Please walk as much as you can for exercise. Gradually increase the distance that you walk as your endurance increases. SPECIAL CARE INSTRUCTIONS: VERY IMPORTANT TO READ AND REVIEW A. Do not take any anti-inflammatory medications (i.e. Indocin, Advil, Aspirin, Naprosyn, Aleve, Motrin, etc.) as these may inhibit the chance of a solid fusion. Tylenol is okay to take. B. Your surgical incision has been closed with a cosmetic suture under the skin that will dissolve in about 6 weeks. In 14 days, you can use a pair of clean scissors and cut the suture that is left outside of the skin at the ends of your incision. C. Complications are uncommon, but please contact us if you have any signs or symptoms of: 1. wound infection (fever higher than 102.5 degrees F, redness, separation of wound, drainage, or increasing pain from the incision) 2. blood clots in legs (pain, swelling, redness and warmth in legs) 3. urinary tract infection (fever higher than 102.5 degrees, burning upon urination or increased frequency of urination) 4. nerve problems (inability to walk on your toes or heels, numbness, loss of bowel or bladder control) 5. any other symptoms that concern you. D. Please call the office at if you have any concerns or questions about your operation or recovery. MANAGING PAIN AFTER SPINAL SURGERY 1. Narcotic medication is intended for short-term use and will be provided for surgical pain. Surgical pain usually lasts for a period of 4-6 weeks. Narcotic medication includes Percocet, Vicodin, Darvocet, Tylenol #3 or Lortab. 2. Longer-term pain is more appropriately treated with non-narcotic medication such as Tylenol ES. 3. Muscle spasm is not appropriately treated with narcotics. Muscle relaxers such as Soma, Flexeril or Skelaxin can be used along with Tylenol ES. 4. Remember that we all live with some "aches and pains". This is not unusual or uncommon after an injury or as we get older. 5. We will provide appropriate medication within the normal guidelines of their prescribed use. We will also be very cautious and aware of potential abuse and extended duration of patients' medication needs. 6. Please allow 2-3 days to process refills. Prescriptions will not be mailed but must be picked up at the office. FOLLOW UP VISIT: Keep your scheduled follow-up appointment. Any questions, please call the office at . Pending Studies at Discharge: No Stand-Alone Forms: My [facility], Smoking Cessation Medications and DC Order Prescriptions: New tramadol 50 mg tablet 50 mg PO Q6H PRN (Reason: pain, moderate) Qty: 30 0RF oxycodone 5 mg tablet 5 mg PO DAILY PRN (Reason: pain) Qty: 30 0RF Continued lovastatin 10 mg tablet 10 mg PO Q2D Qty: 45 3RF Rx Instructions: 10 mg PO every other day; potassium chloride 10 mEq capsule, extended release 10 meq PO BID Qty: 180 3RF hydrochlorothiazide 25 mg tablet 25 mg PO QAM Qty: 90 3RF diltiazem HCl 180 mg capsule,extended release 24hr 180 mg PO BID Qty: 180 3RF levothyroxine 50 mcg tablet 50 mcg PO QAM Qty: 90 3RF sildenafil [Viagra] 100 mg tablet See Rx Instructions PO DAILY PRN (Reason: sexual activity) Qty: 30 3RF Rx Instructions: 1/2-1 PO daily PRN; Take 30-60 min prior. (DME) External suction penile pump See Rx Instructions .Route .MEDSUPPLY Qty: 1 0RF Rx Instructions: As directed hydrocortisone 2.5 % cream 1 applic TOP TID PRN (Reason: Hemorrhoids) Qty: 270 3RF hydralazine 50 mg tablet 50 mg PO QID Qty: 120 5RF aspirin [Julián Low Dose Aspirin] 81 mg Tablet,Delayed Release (Dr/Ec) 81 mg PO HS telmisartan 80 mg tablet 80 mg PO QPM Rx Instructions: Take in the pm. mecobalamin (vitamin B12) 1,000 mcg tablet,disintegrating 1,000 mcg sublingual QPM Rx Instructions: place tablet under tongue and allow to dissolve for at least30 secs before swallowing Multivitamin 50 Plus Tablet 1 tab PO QAM Glucosamine Chondroitin 550-30-1 mg Capsule 2 cap PO QPM Discontinued ibuprofen 200 mg Tablet 400 mg PO HS Discharge Orders: Discharge Order (Routine); Ordered 11/24/22 Ordered By: Andrade Fountain Admission Data Admit Date/Time: 11/23/22 09:44 Attending Provider: Andrade Fountain Admit Provider: Andrade Fountain Primary Care Provider: Esteban Elizabeth Other Providers: Paxton Méndez ; Barry Lema
[2022-11-24] MEDS: hydrALAZINE TAB 50 MG TAB PO SCH (08:25)
[2022-11-24] MEDS: dilTIAZem HCL 180 MG CAPCR PO SCH (08:25)
[2022-11-24] MEDS: POTASSIUM CHLORIDE 10 MEQ TABCR PO SCH (08:26)
--- NOTE | 2022-11-24 08:42 | Hospitalist Progress Note ---
Date of Service November 24, 2022 Assessment & Plan (1) Myelopathy concurrent with and due to spinal stenosis of cervical region: Plan: - S/P C5-C6 anterior cervical discectomy and fusion, C3-C5 fusion, C4 Corpectomy, and spinal cord monitoring 11/23/[address] Fountain - Patient being discharged to home later today (2) Type 2 diabetes mellitus: Plan: - on no medications, controlled with diet and exercise - Last HgbA1C 6 (3) Hypothyroidism: Plan: - Continue Levothyroxine 50mcg (4) Essential familial hypercholesterolemia: Plan: Continue Lovastatin 10mg one q2d (5) Benign essential hypertension: Plan: Continue HCTZ 25mg daily, Hydralazine 50mg QID, Diltiazem 180mg BID, Cozaar (hospital equivalent to Telmisartan) 100mg Plan Tolerating diet Pain management per primary team encouraged incentive spirometry Patient being discharged to home later today Admission and Anticipated Discharge Date Admission Date: November 23, 2022 Subjective Patient is awake in bed. He sttes he is feeling well this AM. He is passing flatus, no BM, had Miralax this AM and states he feels like he will have a BM. Denies any N/V and tolerating diet. Patient tells me he is being discarged to home later today. He denies any chest pain, SOB, cough or dyspnea. He states the hoarse voice has resolved. Review of Systems Review of Systems: Patient denies any chest pain, SOB, COugh, fevers or chills. He admits to some hoarse voice but denies any dysphagia. He denies any abdominal pain, nausea or vomiting. All other ROS negative unless stated + above Physical Exam Constitutional: WD/WN, vitals as above Respiratory: normal respiratory effort, lungs clear to auscultation Cardiovascular: RRR, no murmur, no edema Gastrointestinal (Abdomen): normal bowel sounds, soft, nontender, no hepatosplenomegaly Musculoskeletal: cervical collar in place, TANA drain with scant amount serosanguineous fluid Psychiatric: A+Ox3, euthymic affect Results & Data Results & Data Vital Signs (Past 12 Hours) Vital Signs Temp Pulse Resp BP Pulse Ox O2 Del Method O2 Flow Rate 11/24/22 08:15 36.5 C 76 16 166/89 H 98 Room Air 11/24/22 07:40 77 16 97 Room Air 11/24/22 06:03 36.6 C 73 16 169/98 H 96 Room Air 11/24/22 04:06 36.6 C 72 16 157/89 H 94 Room Air 11/24/22 02:18 75 16 96 Room Air 11/24/22 02:03 36.7 C 74 16 147/77 H 93 Room Air 11/23/22 22:54 66 15 98 Room Air 11/23/22 20:50 Nasal Cannula 1 11/24/22 00:14 36.6 C 73 16 148/75 H 93 Room Air 11/23/22 22:09 36.5 C 70 16 154/81 H 95 Nasal Cannula 1 Laboratory Results Abnormal lab results 11/24/22 11/24/22 Range/Units 05:52 05:52 WBC 11.23 H (4.8-10.8) K/ul Glucose 216 H (70-99(Fasting)) mg/dl PG Care Time/CCT Total # of Minutes Spent Total Time Spent with Patient: Total time spent is greater than 50% in coordination of care (as documented) at patient's floor/unit and/or counseling patient: Coding Level of Care Code 00571 SUB INP/OBS CARE 09/09MIN Diagnoses Myelopathy concurrent with and due to spinal stenosis of cervical region M48.02; G99.2 Type 2 diabetes mellitus E11.9 Hypothyroidism E03.9 Essential familial hypercholesterolemia E78.01 Benign essential hypertension I10
[2022-11-24] MEDS ORDERED: LEVOTHYROXINE SODIUM 50 MCG TABLET PO SCH (09:00)
[2022-11-24] MEDS ORDERED: hydroCHLOROthiazide 25 MG TAB PO SCH (09:00)
[2022-11-24] MEDS ORDERED: CEROVITE ADV FORMULA TAB PO SCH (09:00)
[2022-11-25] MEDS ORDERED: LOVASTATIN 20 MG TAB PO SCH (09:00)
== END 2022-11-24 13:45 | disposition home or self-care (01) | DRG 472 ==
LOC: ASU 06:03 → 3E 09:44 → INTOOBSV 09:44